=== PATIENT | male | born 1930 | race Caucasian/White ===

== ENCOUNTER → 2016-04-19 | Outpatient (CLI) | payer OTHER ==
--- NOTE | 2016-04-19 22:23 | DI ---
MRI CERVICAL SPINE SCAN, 04/19/2016 8:45 AM: Clinical History: Cervical stenosis. Dizziness. Previous Exam: None. Sequences: Sagittal T1and T2 weighted. Axial T2 PLUS and FE 3D DUAL. Coronal T1 scans through the upp er cervical spine. The vertebral bodies are of normal height and size. Severe disc space narrowing is present from C4-5 through C6-7 with moderate narrowing at C2-3, C3-4, and at C7 T1-T4 5. All the disc spaces show desic cation change. The cervical cord is normal. There is diffuse cerebellar atrophy. The C2-3 disc space is normal. C3-4 has left neural foraminal stenosis primarily secondary to bony proliferative change. There is no canal or right neural foraminal stenosis. C4-5 has a mild bulging but not herniated disc without canal stenosis. There is bilateral mild neural foraminal stenosis. C5-6 has a central bulging but not herniated disc without canal stenosis and there is mild bilateral neural foraminal stenosis. The C6-7 disc space is normal. C7-T1 through T4-5 show very mild bulging but not herniated discs wit hout canal or neural foraminal stenosis. There is superior endplate invagination of the body of T2 co nsistent with an old compression fracture. Readin. There is left neural foraminal stenosis at C3-4 secondary to bony proliferative change. There is no canal or right neural foraminal stenosis. 2. C4-5, C5-6, and C7-T1 through T4-5 have bulging but not herniated discs without canal or neural f oraminal stenosis. 3. The C2-3 and C6-7 disc spaces are normal. 4. There is an old compression fracture involving the superior endplate of T2.
== END ==
LOC: MRI 08:34
PROVIDERS: ATTEND Orthopaedic Surgery
DX: M48.02 Spinal stenosis, cervical region (principal); R42 Dizziness and giddiness; M47.812 Spondylosis without myelopathy or radiculopathy, cervical region; M48.54XD Collapsed vertebra, not elsewhere classified, thoracic region, subsequent encounter for fracture with routine healing
CPT/HCPCS: 72141

== ENCOUNTER → 2016-04-27 | Outpatient (CLI) | payer OTHER | LOC: MMPC 11:11 | PROVIDERS: ATTEND Internal Medicine | DX: I10 Essential (primary) hypertension (principal); B02.21 Postherpetic geniculate ganglionitis; Z86.73 Personal history of transient ischemic attack (TIA), and cerebral infarction without residual deficits | CPT/HCPCS: 99214; G0463 ==

== ENCOUNTER → 2016-07-27 | Outpatient (CLI) | payer OTHER | LOC: LAB 14:02 | PROVIDERS: ATTEND Urology | DX: R97.20 Elevated prostate specific antigen [PSA] (principal) | CPT/HCPCS: 36415; 84153 ==

== ENCOUNTER 2016-08-02 19:06 | Emergency (ER) | payer OTHER ==
[~2016-08-02 19:06] MED LIST: LORazepam 2 MG/1 ML VIAL IVP ONE
[2016-08-02] MEDS ORDERED: Sodium Chloride 0.9% 100 ML IV ONE (19:21)
[2016-08-02] MEDS ORDERED: FOSPHENYTOIN ONE (19:21)
[2016-08-02] MEDS ORDERED: SODIUM CHLORIDE IV ONE (19:24)
[2016-08-02] MEDS ORDERED: FOSPHENYTOIN IV ONE (19:24)
[2016-08-02 19:30] LABS: BASOPHILS # (AUTO) 0.04 10*3/UL; BASOPHILS % (AUTO) 0.2 % (0-1); EOSINOPHILS # (AUTO) 0 10*3/UL; EOSINOPHILS % (AUTO) 0 % (0-8); HEMATOCRIT 41.3 % (42.0-52.0); HEMOGLOBIN 13.6 g/dL (14.0-18.0); LYMPHOCYTES # (AUTO) 0.62 10*3/uL; MEAN CORPUSCULAR HEMOGLOBIN 31.4 PG (27-31); MEAN CORPUSCULAR HGB CONC 32.9 g/dL (33-37); MEAN CORPUSCULAR VOLUME 95.4 FL (80-90); MEAN PLATELET VOLUME 9.9 FL (7.4-12.2); MONOCYTES # (AUTO) 1.44 10*3/UL (0.3-0.8); MONOCYTES % (AUTO) 7.9 % (5-15); NEUTROPHILS # (AUTO) 16.08 10*3/UL; NEUTROPHILS % (AUTO) 88.3 % (50-80); PLATELET MORPHOLOGY COMMENT NORMAL MORPHOLOGY (NORM); RBC MORPHOLOGY COMMENT NORMAL MORPHOLOGY (NORM); RED BLOOD COUNT 4.33 10^6/uL (4.70-6.10); WBC MORPHOLOGY COMMENT NORMAL MORPHOLOGY (NORM)
[2016-08-02 19:42] LABS: BUN/CREATININE RATIO 42.22 (6-20); CALCIUM 8.8 mg/dL (8.7-10.7); SERUM ALBUMIN 3.7 g/dL (3.5-4.8)
--- NOTE | 2016-08-02 19:52 | EKG ---
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
--- NOTE | 2016-08-02 20:19 | DI ---
CT HEAD W/O CONTRAST,08/02/2016 7:25 PM: Clinical History: Seizure. Previous Exam: December 27, 2015. Findings: Multiple helically acquired CT images are obtained through the brain without contrast, and demonstrat e a new intraventricular shunt within the right frontal lobe of the brain extending into the right la teral ventricle. This extends down the subcutaneous fat of the right parietal scalp and into the righ t soft tissues of the neck. There is no mass, hemorrhage or midline shift. Impression: 1. No acute intracranial pathology. 2. New ventriculoperitoneal shunt which appears to be in good position.
--- NOTE | 2016-08-03 00:58 | PDOC ---
Seizure HPI - General Chief Complaint: Neurological Complaints Stated Complaint: POSSIBLE SEIZURE Date Seen by Provider: 08/02/16 Time Seen by Provider: 19:05 Source: POSITIVE: EMS, Other (Son) Exam Limitations: POSITIVE: Clinical condition Nurse's Notes Reviewed & Considered: Yes EMS Report Reviewed & Considered: Verbal - History of Present Illness Initial Comments: The patient is an 85-year-old male. At around 1800 family members went to the patient's residence to find the patient lying on the floor of the bathroom having "a seizure". Patient was having tonic-clonic activity mainly of the head and his head was jerking to the right. According to paramedics eyes were deviating to the right. Patient was also observed to have some seizure-type activity in the right upper extremity. Paramedics gave the patient a milligram of Ativan with no effect. Patient was last seen by family members around 10 AM and he seemed normal at that time, according to the patient's son. On the patient's arrival to the emergency room he was given 2 more milligrams of Ativan and the seizure activity stopped. However it recurred approximately 10 minutes later and at that time the patient was given fosphenytoin, 20 mg/kg PE. Seizure activity stopped and has not recurred. The patient could've fallen and he could've had a seizure activity anytime after 10 AM this morning. 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 Patient has a history of hypertension. He does not smoke. Following termination of his seizure the patient was postictal, but then began to come around. He was noted to have speech and aphasia. He would attempt to answer questions but it was very difficult to understand his answers. He was also noted to have some weakness of the right arm and right leg. Family members state that he has not complained of any head, chest or abdominal pain. No history of alcohol use. Body Location Affected: REPORTS: Head (Seizure. Ecchymosis above right eye) Timing: REPORTS: Unknown Duration: Unknown (Patient last seen by family at 10 AM and he seemed normal at that time.) Severity: Severe Quality: REPORTS: Other (No apparent pain) Witnessed Seizure?: Yes (family members when they returned to the patient's house at around 1800) Preceding Symptoms/Context (specify in comments): REPORTS: Other (Recently had ventricular peritoneal shunt placed 2 to normal tensive hydrocephaly. Patient unable to relate whether or not he had any preceding symptoms.) Character of Seizure(s): REPORTS: Lost Consciousness, Completely Unresponsive, Other (Tonic-clonic activity of the head and eyes, with deviation of head and eyes to the right and some tonic-clonic activity right upper extremity) Post-ictal Symptoms: REPORTS: Speech Difficulty, Other (Somnolence) Recently seen/treated/hospitalized: Yes Any Prior Injuries Related to Current Complaint?: Yes (patient noted to have a contusion above the right eye) - Patient Home Medications Home Medications: Home Medications Aspirin 325 mg PO DAILY #30 tab 02/03/16 Meclizine HCl 12.5 mg PO QHS tab 03/02/16 Atorvastatin Calcium 1 tab PO QHS #90 tab 07/27/16 Losartan Potassium 0.5 tab PO DAILY #90 tab 07/27/16 Metoprolol Succinate 1 tab PO BID #135 tab 07/27/16 - Patient Allergies Allergies/Adverse Reactions: Allergies Allergy/AdvReac Type Severity Reaction Status Date / Time FUROCIN Allergy RASH Uncoded 03/01/16 11:14 Past Medical History - heen HEENT History: Cataracts Cardiovascular History: Hypertension Respiratory History: Denies History Gastrointestinal History: Denies History Genitourinary History: Other (please comment) Additional Genitourinary History: BPH Endocrine History: Denies History Musculoskeletal History: Arthritis Prosthesis or Implant: No Neurological History: Denies History Blood Disorders: Denies History Psychiatric History: Denies History History of Sexually Transmitted Diseases: No Cancer History: Denies History History of MDRO: No History of Other Communicable Diseases: No Alcohol Use: None Substance Use Type: None Previous Surgical History: Yes Type / Date of Surgery: Tender 14 days ago; ventricular peritoneal shunt for normotensive hydrocephaly Significant Family History: No pertinent family hx Past Medical History Reviewed: Reviewed - Changes Made ROS - Limitations ROS Limitations: Clinical Condition (Review of systems obtained from family members) Constitution: REPORTS: Denies Symptoms Cardiovascular: REPORTS: Denies Cardiac Symptoms Respiratory: REPORTS: Denies Resp Symptoms Neurological: REPORTS: Denies Neuro Symptoms Gastrointestinal: REPORTS: Denies GI Symptoms Endocrine: REPORTS: Denies Symptoms Musculoskeletal: REPORTS: Denies MS Symptoms Genitourinary: REPORTS: Denies Symptoms Eyes: REPORTS: Denies Symptoms ENT: REPORTS: Denies Symptoms Skin: REPORTS: Denies Skin Symptoms Lympathic: REPORTS: Denies Lympathic Symptoms Immunologic: POSITIVE: Denies Symptoms Psychiatric: POSITIVE: Denies Psych Symptoms Seizure Exam - General Appearance General Appearance: POSITIVE: Convulsing - HEENT HEENT: POSITIVE: Eyes Inspection Nml, Ears Inspection Nml, Nose Inspection Nml, Oral/Dental Inspect. Nml, Pharynx Inspect. Nml, PERRL, EOMI. NEGATIVE: Head Inspection Nml (Ventriculoperitoneal shunt noted; balloon compressible. Contusion above her right eye) - Pupil Size Pupil Size: 4 mm: Bilateral - Neck Neck: POSITIVE: Non Tender, Neck Supple, Trachea Midline, Nexus Criteria Negative - Respiratory Respiratory: POSITIVE: Chest Non Tender, No Ecchymosis, Breath Sounds Normal, No Respiratory Distress - Cardiovascular Cardiovascular: POSITIVE: Regular Rate and Rhythm, Heart Sounds Normal, Equal Pulses, Strong Pulses, No Murmur, No Gallop, No JVD, No Pulse Deficit Peripheral Pulses: Radial (R): 2+, Radial (L): 2+ - Abdomen Abdomen: Soft: (All Quadrants), Normal Bowel Sounds: (All Quadrants), Denies Tenderness: (All Quadrants), No Splenomegaly: (All Quadrants), No Hepatomegaly: (All Quadrants), No Guarding: (All Quadrants), No Rebound: (All Quadrants), No Palpable Pulse: (All Quadrants), No Palpabale Mass: (All Quadrants), No Distention: (All Quadrants), No Rigidity: (All Quadrants) - Skin Skin: POSITIVE: Intact, Normal For Race, Warm, Dry, No Rash - Extremities Extremity: Non-Tender: (All Extremities), Normal ROM: (All Extremities), Normal Inspection: (All Extremities) - Observed Seizure Activity Observed Seizure Activity in ED: POSITIVE: Head Turned, Eyes Deviated, Unresponsive - Neuro / Psych Higher Functions: POSITIVE: Expressive Aphasia. NEGATIVE: Speech Normal (After termination of seizure patient was noted to have a facial) Cranial Nerves: POSITIVE: Normal As Tested, No Evidence of Acute CVA Sensorimotor: POSITIVE: Weakness (Weakness right arm and less so right leg). NEGATIVE: No Motor Deficits Seizure Progress - Results Reviewed by me Xrays/CTs/US Reviewed by me: Yes Discussed with Radiologist: Yes Radiology Findings: CT scan head without contrast shows shunt in place. No hemorrhages. No radiographic appearance of increased intracranial pressure. Lab Results Reviewed: Yes (troponin and white blood cell count and creatine kinase elevated) Lab Results:: Laboratory Results 08/02/16 Range/Units 19:15 WBC 18.22 H (4.8-10.8) 10^3/uL RBC 4.33 L (4.70-6.10) 10^6/uL Hgb 13.6 L (14.0-18.0) g/dL Hct 41.3 L (42.0-52.0) % MCV 95.4 H (80-90) FL MCH 31.4 H (27-31) PG MCHC 32.9 L (33-37) g/dL RDW Std Deviation 49.3 (39-50) fL RDW Coeff of Angela 14.6 H (11.5-14.5) % Plt Count 299 (140-350) 10*3/uL MPV 9.9 (7.4-12.2) FL Immature Gran % (Auto) 0.2 (0-5) % Neut % (Auto) 88.3 H (50-80) % Lymph % (Auto) 3.4 L (10-50) % [place] % (Auto) 7.9 (5-15) % Eos % (Auto) 0 (0-8) % Baso % (Auto) 0.2 (0-1) % Immature Gran # (Auto) 0.04 10*3/UL Neut # (Auto) 16.08 10*3/UL Lymph # (Auto) 0.62 10*3/uL [place] # (Auto) 1.44 H (0.3-0.8) 10*3/UL Eos # (Auto) 0 10*3/UL Baso # (Auto) 0.04 10*3/UL WBC Morphology Comment Normal morphology (NORM) Plt Morphology Comment Normal morphology (NORM) RBC Morph Comment Normal morphology (NORM) Sodium 144 (135-145) meq/L Potassium 4.0 (3.8-5.2) meq/L Chloride 109 (98-112) meq/L Carbon Dioxide 22 L (23-33) meq/L Anion Gap 13 (5-20) BUN 38 H (7-22) mg/dL Creatinine 0.9 (0.70-1.50) mg/dL Estimated GFR (>60 ml/min/1.73m(2)) BUN/Creatinine Ratio 42.22 H (6-20) Glucose 111 H (78-110) mg/dL Calculated Osmolality 307.0 H (267-292) mOsm/kg Calcium 8.8 (8.7-10.7) mg/dL Total Bilirubin 0.6 (0.3-1.2) mg/dL AST 59 H (21-57) IU/L ALT 44 (21-72) IU/L Alkaline Phosphatase 118 (38-126) IU/L Total Creatine Kinase 1069 H (55-170) IU/L Troponin I 4.640 H* (< 0.040) ng/mL Total Protein 6.6 (6.1-8.0) g/dL Albumin 3.7 (3.5-4.8) g/dL Globulin 2.9 (2.50-4.10) g/dL Albumin/Globulin Ratio 1.20 L (1.3-2.0) mg/g EKG Interpreted/Reviewed By Me:: Yes (normal) EKG Interpretation:: POSITIVE: Normal Sinus Rhythm, Normal Rate, Normal Intervals, Normal [place], Normal QRS, Normal ST/T - Patient's Progress Pain Medication Addressed: POSITIVE: Not Applicable School/Work Release Addressed: POSITIVE: Not Applicable Re-Examine Time:: 20:00 Re-Examine Comment: Patient given 2 mg of Ativan shortly after his arrival. His seizure activity stopped but then recurred in about 10 minutes. This point patient given fosphenytoin, 20 mg/kg PE and patient had no recurrence of seizure. Patient post ictal and poorly responsive afterwards; patient appears to have some speech a fascia and weakness in his right arm. Status: POSITIVE: Improved, Re-Examined CVA/Syncope Quality Measure Initiative: POSITIVE: EKG - Consult Consult (If Yes, Name of Consulting MD & Time Called): Yes (Dr. Murphy, ER, 2039) Consulting MD will see pt:: POSITIVE: Recommended Transfer Counseled: POSITIVE: Family, RE: Lab Results, RE: Radiology Results, RE: DX, RE : Need for F/U Patient Care Time - Estimated PCT Patient Care Time (In Minutes): 60 Vital Signs - Recent Vital Signs Vital Signs: Blood pressure 90/60, respiratory rate 15, heart rate 70, oxygen saturation on supplementation 94%. Temperature 98.7 - VS Reviewed Vital Signs Reviewed: Yes Critical Care Note - Critical Care Note Total Time (mins): 60 Critical Care: Recurrent Physical Assessment Required, STUDIO ARTIST Failure Risk, Life Threatening Scenario, Interpretation of Labs - Management Adjusted Based on Results, Interpretation Imaging Studies - Management Adjusted Based on Results History Source: Family, EMS Discussion with Family: and son Discussion with Gas Derrick Operator: Dr. Murphy, ER, [facility], 2039. Dr. Lentz, aircraft machinist helper, [facility], 2029. Discharge Clinical Impression: Status epilepticus, Elevated troponin level Discharge Disposition: Transferred to Short Term Facility Condition: Serious Date Decision to Transfer to Another Facility: 08/02/16 Time Decision to Transfer to Another Facility: 20:00
[2016-08-03 03:55] VITALS: TEMP 98.1
[2016-08-03 04:02] VITALS: RESP 22
== END 2016-08-02 21:10 ==
LOC: ER 19:06
DX: G40.801 Other epilepsy, not intractable, with status epilepticus (principal); M62.81 Muscle weakness (generalized); R79.89 Other specified abnormal findings of blood chemistry; I10 Essential (primary) hypertension; S00.11XA Contusion of right eyelid and periocular area, initial encounter; N40.0 Benign prostatic hyperplasia without lower urinary tract symptoms; W19.XXXA Unspecified fall, initial encounter
CPT/HCPCS: 70450; 80053; 82550; 84484; 85025; 93005; 93010; 96365; 96375; 99291 ×2; Q2009; J7050